=== PATIENT | female | born 1970 | race African-American/Black ===

== ENCOUNTER 2016-09-06 13:07 | Emergency (ER) | payer SELFPAY ==
[~2016-09-06] VITALS: Ht 154.9 cm; Wt 155.0 kg
[~2016-09-06 13:07] MED LIST: NOCURR
[2016-09-06] MEDS ORDERED: LIDOCAINE HCL 1%/EPI 1:100,000 30 ML VIAL INJ ONE (16:15)
[2016-09-06] MEDS ORDERED: PERTUSS(ACELL),DIPH,TET VAC/PF 0.5 ML VIAL IM ONE (16:15)
[2016-09-06] MEDS ORDERED: LIDOCAINE HCL 1%/EPI 1:200,000/PF 10 ML VIAL INJ ONE (16:30)
[2016-09-06 17:42] VITALS: BP 125/80
== END 2016-09-06 17:44 | disposition home or self-care (01) ==
LOC: EMS 13:08
DX: S41.112A Laceration without foreign body of left upper arm, initial encounter (principal); F17.210 Nicotine dependence, cigarettes, uncomplicated; X99.9XXA Assault by unspecified sharp object, initial encounter; Y93.89 Activity, other specified; Y92.89 Other specified places as the place of occurrence of the external cause; Y99.8 Other external cause status
CPT/HCPCS: 12002; 73060; 90471; 90715; 99284; J3490

== ENCOUNTER 2016-09-18 10:38 | Emergency (ER) | payer SELFPAY ==
[~2016-09-18] VITALS: Ht 154.9 cm; Wt 70.4 kg
[2016-09-18 11:30] VITALS: BP 132/80
== END 2016-09-18 11:34 | disposition home or self-care (01) ==
LOC: EMS 10:40
DX: S41.102D Unspecified open wound of left upper arm, subsequent encounter (principal); F41.9 Anxiety disorder, unspecified; F17.210 Nicotine dependence, cigarettes, uncomplicated
CPT/HCPCS: 99281

== ENCOUNTER 2017-01-07 16:17 | Emergency (ER) | payer OTHER ==
[~2017-01-07] VITALS: Ht 154.9 cm; Wt 90.9 kg
[2017-01-07] MEDS ORDERED: SODIUM CHLORIDE 0.9% 1,000 ML IV ONE ×2 (16:45→19:15)
[2017-01-07] MEDS ORDERED: MORPHINE SULFATE 4 MG/ML SYRINGE IVP ONE (16:45)
[2017-01-07] MEDS ORDERED: ACETAMINOPHEN 325 MG TABLET PO ONE (16:45)
[2017-01-07 17:28] LABS: BASOPHILS % (AUTO) 0.7 % (0.0-2.0); EOSINOPHILS % (AUTO) 0.5 % (1.0-6.0); HEMATOCRIT 36.3 % (36-46); HEMOGLOBIN 12.6 g/dL (12.0-16.0); LYMPHOCYTES # (AUTO) 2.3 K/uL (1.0-4.8); LYMPHOCYTES % (AUTO) 16.2 % (22.0-44.0); MEAN CORPUSCULAR HEMOGLOBIN 31.3 pg (26.0-34.0); MEAN CORPUSCULAR HGB CONC 34.6 G/dL (31.0-37.0); MEAN CORPUSCULAR VOLUME 90 fL (80-100); MONOCYTES # (AUTO) 1.7 K/uL (0.1-1.0); NEUTROPHILS # (AUTO) 9.9 K/uL (1.8-7.7); NEUTROPHILS % (AUTO) 70.6 % (40.0-70.0); PLATELET COUNT (AUTO) 434 K/uL (150-450); RED BLOOD CELL COUNT(AUTO) 4.02 MIL/uL (4.00-5.20); WHITE BLOOD COUNT (AUTO) 14.1 K/uL (4.5-11.0)
[2017-01-07 17:52] LABS: LACTIC ACID 1.2 mmol/L (0.4-2.0)
[2017-01-07 18:00] LABS: ALANINE AMINOTRANSFERASE 37 U/L (12-78); ALBUMIN 3.1 g/dL (3.4-5.0); ANION GAP 11 mmol/L (8-16); ASPARTATE AMINOTRANSFERASE 38 U/L (15-37); BILIRUBIN,TOTAL 1.2 mg/dL (0.1-1.0); CALCIUM, TOTAL 8.9 mg/dL (8.8-10.5); CARBON DIOXIDE 27 mmol/L (22-29); CHLORIDE 101 mmol/L (98-107); CREATININE 0.93 mg/dL (0.60-1.30); GLOMERULAR FILTR. RATE CALC > 60 mL/min (>60); SODIUM SERUM 139 mmol/L (136-145); TOTAL PROTEIN, SERUM 7.6 g/dL (6.4-8.2); UREA NITROGEN, BLOOD 8 mg/dL (7-18)
[2017-01-07] MEDS ORDERED: IBUPROFEN 800 MG TABLET PO ONE (18:00)
[2017-01-07 18:04] LABS: POTASSIUM 2.7 mmol/L (3.5-5.1)
[2017-01-07] MEDS ORDERED: POTASSIUM CHLORIDE 20 MEQ ER TABLET PO ONE (18:15)
[2017-01-07] MEDS ORDERED: POTASSIUM CHL 10 MEQ/WATER 50 ML IV ONE (18:15)
[2017-01-07 18:56] LABS: APPEARANCE,URINE CLOUDY (CLEAR); GLUCOSE, URINE (UA) NEGATIVE (NEGATIVE); KETONES,URINE TRACE mg/dL (NEGATIVE); LEUKOCYTE ESTERASE ,URINE LARGE (NEGATIVE); PROTEIN,URINE SEE CONFIRM (NEGATIVE)
[2017-01-07 19:06] LABS: OCCULT BLOOD,URINE MODERATE (NEGATIVE)
[2017-01-07 19:07] LABS: SQUAMOUS EPITHELIAL CELL,UR Moderate /LPF (None Seen); SULFOSALICYLIC ACID,URINE 2+ (Negative); WBC,URINE 26-50 /HPF (0-5)
[2017-01-07] MEDS ORDERED: CefTRIAXone 1 GM/DEXTROSE 50 ML IV ONE (19:15)
[2017-01-07] MEDS ORDERED: IOVERSOL 320 MG/ML 100 ML VIAL ONE (19:52)
[2017-01-07 20:50] LABS: ANION GAP 9 mmol/L (8-16); CALCIUM, TOTAL 7.5 mg/dL (8.8-10.5); CARBON DIOXIDE 25 mmol/L (22-29); CHLORIDE 103 mmol/L (98-107); CREATININE 0.85 mg/dL (0.60-1.30); GLOMERULAR FILTR. RATE CALC > 60 mL/min (>60); POTASSIUM 3.1 mmol/L (3.5-5.1); SODIUM SERUM 137 mmol/L (136-145); UREA NITROGEN, BLOOD 9 mg/dL (7-18)
[2017-01-07 20:55] LABS: ALANINE AMINOTRANSFERASE 27 U/L (12-78); ALBUMIN 2.4 g/dL (3.4-5.0); ASPARTATE AMINOTRANSFERASE 28 U/L (15-37)
[2017-01-07 21:59] VITALS: BP 138/82
== END 2017-01-07 22:05 | disposition home or self-care (01) ==
LOC: EMS 16:18
DX: R16.0 Hepatomegaly, not elsewhere classified (principal); N12 Tubulo-interstitial nephritis, not specified as acute or chronic; E87.6 Hypokalemia; F14.90 Cocaine use, unspecified, uncomplicated; F17.210 Nicotine dependence, cigarettes, uncomplicated
CPT/HCPCS: 36415; 74177; 76700; 80053; 80156; 81001; 83605; 83690; 84703; 85025; 87077; 87086; 87186; 96361; 96365; 96366; 96368; 96375; 99285; J0696; J2270; J3480; J7030; Q9967

== ENCOUNTER 2019-10-30 15:10 | Emergency (ER) | payer OTHER ==
[~2019-10-30] VITALS: Ht 154.9 cm; Wt 93.2 kg
[~2019-10-30 15:10] MED LIST changes: +BUSP10TA23 PO; +FLUO-191 PO; -NOCURR
[2019-10-30] MEDS ORDERED: HYDR-4031 PO (15:14)
[2019-10-30] MEDS ORDERED: SERT50TA12 PO (15:14)
[2019-10-30] MEDS ORDERED: KETOROLAC TROMETHAMINE 10 MG TABLET PO ONE (16:30)
[2019-10-30 17:38] VITALS: BP 117/76
== END 2019-10-30 17:54 | disposition home or self-care (01) ==
LOC: EMS 15:14
DX: S83.92XA Sprain of unspecified site of left knee, initial encounter (principal); F17.210 Nicotine dependence, cigarettes, uncomplicated; Z88.8 Allergy status to other drugs, medicaments and biological substances; I10 Essential (primary) hypertension; X50.9XXA Other and unspecified overexertion or strenuous movements or postures, initial encounter; Y93.89 Activity, other specified; Y92.89 Other specified places as the place of occurrence of the external cause; Y99.8 Other external cause status

== ENCOUNTER 2019-12-15 17:33 | Emergency (ER) | payer OTHER ==
[~2019-12-15] VITALS: Ht 175.3 cm; Wt 109.1 kg
[~2019-12-15 17:33] MED LIST changes: -FLUO-191 PO; +HYDR-4031 PO; +SERT50TA12 PO
[2019-12-15] MEDS ORDERED: ONDANSETRON HCL 4 MG/2 ML VIAL IVP ONE (19:15)
[2019-12-15] MEDS ORDERED: SODIUM CHLORIDE 0.9% 1,000 ML IV ONE (19:15)
[2019-12-15] MEDS ORDERED: KETOROLAC TROMETHAMINE 30 MG/ML VIAL IVP ONE (19:15)
[2019-12-15 19:46] LABS: APPEARANCE,URINE CLOUDY (CLEAR); BILIRUBIN,URINE NEGATIVE (NEGATIVE); GLUCOSE, URINE (UA) NEGATIVE (NEGATIVE); KETONES,URINE NEGATIVE (NEGATIVE); LEUKOCYTE ESTERASE ,URINE SMALL (NEGATIVE); NITRATE,URINE POSITIVE (NEGATIVE); OCCULT BLOOD,URINE LARGE (NEGATIVE); PROTEIN,URINE POS 1+ (NEGATIVE); UROBILINOGEN,URINE 0.2 mg/dL (<=1.0)
[2019-12-15 19:53] LABS: BASOPHILS % (AUTO) 0.9 % (0.0-2.0); EOSINOPHILS % (AUTO) 2.3 % (1.0-6.0); HEMATOCRIT 31.6 % (36-46); HEMOGLOBIN 10.9 g/dL (12.0-16.0); LYMPHOCYTES # (AUTO) 3.4 K/uL (1.0-4.8); LYMPHOCYTES % (AUTO) 38.6 % (22.0-44.0); MEAN CORPUSCULAR HEMOGLOBIN 26.5 pg (26.0-34.0); MEAN CORPUSCULAR HGB CONC 34.6 G/dL (31.0-37.0); MEAN CORPUSCULAR VOLUME 77 fL (80-100); MONOCYTES # (AUTO) 0.9 K/uL (0.1-1.0); MONOCYTES % (AUTO) 10.5 % (2.0-9.0); NEUTROPHILS # (AUTO) 4.2 K/uL (1.8-7.7); NEUTROPHILS % (AUTO) 47.7 % (40.0-70.0); PLATELET COUNT (AUTO) 466 K/uL (150-450); RED BLOOD CELL COUNT(AUTO) 4.12 MIL/uL (4.00-5.20); RED CELL DISTRIBUTION WIDTH 15.3 % (11.5-14.5)
[2019-12-15 20:07] LABS: ANION GAP 11 mmol/L (8-16); CALCIUM, TOTAL 8.9 mg/dL (8.8-10.5); CARBON DIOXIDE 24 mmol/L (22-29); CHLORIDE 104 mmol/L (98-107); CREATININE 0.96 mg/dL (0.60-1.30); GLOMERULAR FILTR. RATE CALC > 60 mL/min (>60); GLUCOSE,RANDOM 94 mg/dL (70-110); POTASSIUM 3.7 mmol/L (3.5-5.1); SODIUM SERUM 139 mmol/L (136-145); UREA NITROGEN, BLOOD 15 mg/dL (7-18)
[2019-12-15 20:18] LABS: BACTERIA,URINE Many /HPF (None Seen)
[2019-12-15 20:19] LABS: SQUAMOUS EPITHELIAL CELL,UR Many /LPF (None Seen)
[2019-12-15 20:21] LABS: ALANINE AMINOTRANSFERASE 21 U/L (12-78); ALBUMIN 3.3 g/dL (3.4-5.0); ALKALINE PHOSPHATASE 82 U/L (46-116); ASPARTATE AMINOTRANSFERASE 14 U/L (15-37); BILIRUBIN,TOTAL 0.2 mg/dL (0.1-1.0); HCG,QUANTITATIVE < 1 mIU/mL (0-6); LIPASE 168 U/L (73-393); TOTAL PROTEIN, SERUM 6.9 g/dL (6.4-8.2)
[2019-12-15 20:59] VITALS: BP 147/61
[2019-12-15] MEDS ORDERED: PHENAZOPYRIDINE HCL 100 MG TABLET PO ONE (21:00)
[2019-12-15] MEDS ORDERED: SULFAMETHOX/TRIMETH DS 800-160 MG/TABLET PO ONE (21:00)
== END 2019-12-15 21:38 | disposition home or self-care (01) ==
LOC: EMS 17:33
DX: N39.0 Urinary tract infection, site not specified (principal); F17.210 Nicotine dependence, cigarettes, uncomplicated; F41.9 Anxiety disorder, unspecified; F32.9 Major depressive disorder, single episode, unspecified; E78.00 Pure hypercholesterolemia, unspecified; I10 Essential (primary) hypertension; F14.90 Cocaine use, unspecified, uncomplicated; Z88.1 Allergy status to other antibiotic agents
CPT/HCPCS: 36415; 74176; 80053; 81001; 83690; 84702; 85025; 87086; 96361; 96374; 99284; J1885; J7030; J2405

== ENCOUNTER 2021-02-22 16:07 | Emergency (ER) | payer OTHER ==
[~2021-02-22] VITALS: Ht 154.9 cm; Wt 79.5 kg
[~2021-02-22 16:07] MED LIST changes: +SERT-158 PO; -SERT50TA12 PO
[2021-02-22] MEDS ORDERED: DICLOFENAC SODIUM 1% 100 GM GEL [4GM] TP ONE (18:30)
[2021-02-22 18:34] VITALS: BP 137/74
== END 2021-02-22 19:41 | disposition home or self-care (01) ==
LOC: EMS 16:14
DX: M25.561 Pain in right knee (principal); B35.3 Tinea pedis; F17.210 Nicotine dependence, cigarettes, uncomplicated; F14.90 Cocaine use, unspecified, uncomplicated; F41.9 Anxiety disorder, unspecified; F32.9 Major depressive disorder, single episode, unspecified; E78.00 Pure hypercholesterolemia, unspecified; I10 Essential (primary) hypertension
CPT/HCPCS: 99283

== ENCOUNTER 2021-09-26 17:49 | Emergency (ER) | payer OTHER ==
[~2021-09-26] VITALS: Ht 154.9 cm; Wt 68.2 kg
[~2021-09-26 17:49] MED LIST changes: -HYDR-4031 PO; +HYDR-4808 PO
[2021-09-26 18:34] LABS: BASOPHILS % (AUTO) 0.8 % (0.0-2.0); EOSINOPHILS % (AUTO) 2.5 % (1.0-6.0); HEMATOCRIT 35.7 % (36-46); HEMOGLOBIN 12.4 g/dL (12.0-16.0); LYMPHOCYTES # (AUTO) 2.2 K/uL (1.0-4.8); LYMPHOCYTES % (AUTO) 30.3 % (22.0-44.0); MEAN CORPUSCULAR HEMOGLOBIN 27.3 pg (26.0-34.0); MEAN CORPUSCULAR HGB CONC 34.6 G/dL (31.0-37.0); MEAN CORPUSCULAR VOLUME 79 fL (80-100); MONOCYTES # (AUTO) 0.7 K/uL (0.1-1.0); MONOCYTES % (AUTO) 9.5 % (2.0-9.0); NEUTROPHILS # (AUTO) 4.1 K/uL (1.8-7.7); NEUTROPHILS % (AUTO) 56.9 % (40.0-70.0); PLATELET COUNT (AUTO) 415 K/uL (150-450); RED BLOOD CELL COUNT(AUTO) 4.54 MIL/uL (4.00-5.20); RED CELL DISTRIBUTION WIDTH 17.3 % (11.5-14.5)
[2021-09-26 18:48] LABS: ANION GAP 9 mmol/L (8-16); CALCIUM, TOTAL 8.9 mg/dL (8.8-10.5); CARBON DIOXIDE 26 mmol/L (22-29); CHLORIDE 105 mmol/L (98-107); CREATININE 0.69 mg/dL (0.60-1.30); GLOMERULAR FILTR. RATE CALC > 60 mL/min (>60); GLUCOSE,RANDOM 106 mg/dL (70-110); POTASSIUM 3.6 mmol/L (3.5-5.1); SODIUM SERUM 140 mmol/L (136-145); UREA NITROGEN, BLOOD 11 mg/dL (7-18)
[2021-09-26 18:58] LABS: ALANINE AMINOTRANSFERASE 62 U/L (12-78); ALBUMIN 3.4 g/dL (3.4-5.0); ALKALINE PHOSPHATASE 94 U/L (46-116); ASPARTATE AMINOTRANSFERASE 55 U/L (15-37); BILIRUBIN,TOTAL 0.4 mg/dL (0.1-1.0); LIPASE 222 U/L (73-393); TOTAL PROTEIN, SERUM 7.2 g/dL (6.4-8.2)
[2021-09-26] MEDS ORDERED: PB/HYOSCY/ATR/SCOP/LIDO/MAALOX 55 ML BOTTLE PO ONE (21:15)
[2021-09-26 22:34] VITALS: BP 157/100
[2021-09-26] MEDS ORDERED: FAMO20 PO (22:35)
== END 2021-09-26 23:06 | disposition home or self-care (01) ==
LOC: EMS 18:04
DX: R10.84 Generalized abdominal pain (principal); F19.10 Other psychoactive substance abuse, uncomplicated; F10.10 Alcohol abuse, uncomplicated; F41.9 Anxiety disorder, unspecified; F32.A Depression, unspecified; E78.00 Pure hypercholesterolemia, unspecified; I10 Essential (primary) hypertension; F17.210 Nicotine dependence, cigarettes, uncomplicated; F14.90 Cocaine use, unspecified, uncomplicated; Z87.898 Personal history of other specified conditions; Z88.8 Allergy status to other drugs, medicaments and biological substances
CPT/HCPCS: 80053; 83690; 84484; 85025; 93005; 99284

== ENCOUNTER 2024-12-29 23:59 | Emergency (ER) | payer OTHER ==
[~2024-12-29] VITALS: Ht 172.7 cm; Wt 79.5 kg
[~2024-12-29 23:59] MED LIST changes: +FAMO20 PO
[2024-12-30 00:13] VITALS: BP 132/93; PULSE 71; RESP 16; TEMP 98.3; O2SAT 100
[2024-12-30 00:47] LABS: PLATELET COUNT (AUTO) 425 K/uL (150-450); RED BLOOD CELL COUNT(AUTO) 4.49 MIL/uL (4.00-5.20); RED CELL DISTRIBUTION WIDTH 14.5 % (11.5-14.5); WHITE BLOOD COUNT (AUTO) 9.6 K/uL (4.5-11.0)
[2024-12-30 00:53] LABS: CALCIUM, TOTAL 8.9 mg/dL (8.8-10.5); CREATININE 0.71 mg/dL (0.60-1.30); GLOMERULAR FILTR. RATE CALC > 60 mL/min (>60); GLUCOSE,RANDOM 88 mg/dL (70-110); SODIUM SERUM 139 mmol/L (136-145); UREA NITROGEN, BLOOD 16 mg/dL (7-18)
[2024-12-30 01:02] LABS: APPEARANCE,URINE HAZY (CLEAR); GLUCOSE, URINE (UA) NEGATIVE (NEGATIVE); LEUKOCYTE ESTERASE ,URINE MODERATE (NEGATIVE); OCCULT BLOOD,URINE NEGATIVE (NEGATIVE); PH,URINE DRUG SCREEN 5.0 (5.0-8.0); SPECIFIC GRAVITIY, URINE 1.033 (1.003-1.030)
[2024-12-30 01:18] LABS: ALCOHOL, URINE DRUG SCREEN NEGATIVE (NEGATIVE); AMPHET/METH SCREEN,URINE NEGATIVE (NEGATIVE); BARBITURATE SCREEN, URINE NEGATIVE (NEGATIVE); CANNABINOID SCREEN,URINE NEGATIVE (NEGATIVE); COCAINE SCREEN,URINE POSITIVE (NEGATIVE); METHADONE SCREEN, URINE NEGATIVE (NEGATIVE); NITRATE,URINE NEGATIVE (NEGATIVE)
[2024-12-30 01:19] LABS: SQUAMOUS EPITHELIAL CELL,UR Few /LPF (None Seen)
[2024-12-30] MEDS: AZITHROMYCIN 500 MG TABLET PO ONE (01:27)
[2024-12-30] MEDS: CefTRIAXone SODIUM 1 GM/VIAL IM ONE (01:27)
[2024-12-30] MEDS: LIDOCAINE/PF 1% 2 ML VIAL IM ONE (01:27)
== END 2024-12-30 02:20 | disposition home or self-care (01) ==
LOC: EMS 23:59
DX: M79.605 Pain in left leg (principal); T74.21XA Adult sexual abuse, confirmed, initial encounter; E78.00 Pure hypercholesterolemia, unspecified; F32.A Depression, unspecified; F41.9 Anxiety disorder, unspecified; I10 Essential (primary) hypertension; F17.210 Nicotine dependence, cigarettes, uncomplicated; F14.90 Cocaine use, unspecified, uncomplicated; F10.90 Alcohol use, unspecified, uncomplicated; Z88.8 Allergy status to other drugs, medicaments and biological substances; Z79.899 Other long term (current) drug therapy; Y90.9 Presence of alcohol in blood, level not specified; Y92.89 Other specified places as the place of occurrence of the external cause
CPT/HCPCS: 99283; 80048; 85025; 36415; 87491; 87591; 80307; 81001; 96372; G0480; J0456; J0696; J3490